=== PATIENT | female | born 1995 | race Caucasian/White ===

== ENCOUNTER 2019-04-17 12:38 | Day surgery (SDC) | payer OTHER ==
[2019-04-17 13:16] VITALS: BP 123/77; TEMP 98.3; BMI 41.2
[2019-04-17] MEDS ORDERED: hydrALAZINE 20 MG/ML VIAL SLOW IVP PRN (13:29)
[2019-04-17 13:56] LABS: Bacteria/HPF 4+ HPF (None Seen); Bilirubin Negative (Negative); Blood, Urine Negative (Negative); Clarity Clear (Clear); Glucose, Urine (Dipstick) Normal (Negative); Leukocyte 75 Leu/uL (Negative); Mucous/LPF Rare LPF (<2+); Nitrite 2+ (Negative); Protein, Urine (Dipstick) Negative (Neg-Trace); RBC/HPF 0-3 HPF (0-3); Urobilinogen Normal mg/dL (Less than 2)
--- NOTE | 2019-04-17 23:20 | SS ---
DATE OF ADMISSION: 04/17/2019 DATE OF DISCHARGE: 04/17/2019 EVALUATING PHYSICIAN: Tu Irwin MD CHIEF COMPLAINT: Back pain. HISTORY OF PRESENT ILLNESS: Ms. Chong is a 23-year-old white G4, P2 with an estimated date of confinement of 07/16/2019, who presents complaining of suprapubic and back pain over the last 2 weeks, markedly increased over the last 24. She denies ruptured membranes or vaginal bleeding. She denies associated fever or chills. Her care has been in [place] with Dr. Bajwa. She states she is in town visiting. PAST MEDICAL HISTORY: Includes 2 vaginal deliveries at term and one miscarriage, long history of urinary tract infections. PAST SURGICAL HISTORY: None. CURRENT MEDICATIONS: vitamins. ALLERGIES: PENICILLIN WHICH GIVES HER A RASH. SOCIAL HISTORY: She denies tobacco, alcohol, or drug use. REVIEW OF SYSTEMS: Denies nausea, vomiting, fever, chills, ruptured membranes, or vaginal bleeding. PHYSICAL EXAMINATION: VITAL SIGNS: Vital signs are stable. She is afebrile. GENERAL: She is a pleasant, in no acute distress. ABDOMEN: Soft, nontender, and gravid. PELVIC: Exam by the labor nurse shows her cervix to be closed and long. heart rate tracing is stable. No significant uterine contractions are seen. LABORATORY DATA: Urinalysis obtained by straight cath shows a specific gravity of 1.019 with negative protein, negative glucose, trace ketones, negative blood, 2+ nitrites, and positive for leukocyte esterase. On microscopic, there is 0-3 rbc's, 7-10 wbc's and 4+ bacteria. ASSESSMENT: 1. 27-week intrauterine . 2. No evidence of labor. 3. Urinary tract infection. PLAN: The patient will be dismissed to home with a prescription for Macrobid 1 p.o. b.i.d. for 7 days as she is allergic to penicillin. She states she has a followup with her doctor in [place] next week. She was given complete precautions and sent home in good condition. Job ID: [id number]
== END 2019-04-17 15:00 | disposition home health service (06) ==
LOC: L&D/OP 12:38
PROVIDERS: ATTEND Obstetrics & Gynecology
DX: O23.42 Unspecified infection of urinary tract in pregnancy, second trimester (principal); Z3A.27 27 weeks gestation of pregnancy; Z88.0 Allergy status to penicillin
CPT/HCPCS: 36415; 51701; 81003; 81015; 99283